=== PATIENT | female | born 1990 | race American Indian/Alaskan Native ===

== ENCOUNTER 2021-03-24 18:06 | Emergency (ER) | payer BC ==
[2021-03-24 23:40] LABS: Mean Corpuscular HGB Conc 30 % (30-34); Platelet Count 419 K/mm3 (140-440); Red Cell Distribution Width 19.2 % (13.2-15.2)
[2021-03-24 23:43] LABS: Hematocrit 31.6 % (30.3-42.9); Hemoglobin 9.4 gm/dl (10.1-14.3); Mean Corpuscular Volume 58 fl (79-97)
[2021-03-24 23:58] LABS: Alanine Aminotransferase 12 units/L (7-56); Albumin 4.5 g/dL (3.9-5); Blood Urea Nitrogen 9 mg/dL (7-17); Calcium 9.1 mg/dL (8.4-10.2); Hemolysis Index 0
[2021-03-25] MEDS ORDERED: METOCLOPRAMIDE 10 MG/2 ML INJ IV STA (00:15)
[2021-03-25] MEDS ORDERED: SODIUM CHLORIDE 0.9% 1000 ML 1,000 ML IV ONE (00:15)
[2021-03-25] MEDS ORDERED: diphenhydrAMINE 50 MG/ML VIAL IV STA (00:15)
[2021-03-25 00:19] LABS: BUN/Creatinine Ratio 15
--- NOTE | 2021-03-25 00:34 | Emergency Department Report ---
ED Abdominal Pain HPI - General Chief Complaint: Nausea/Vomiting/Diarrhea Stated Complaint: VOMITING/WEAKNESS PUI?: No Time Seen by Provider: 03/24/21 23:50 Source: patient Mode of arrival: Ambulatory Limitations: No Limitations - History of Present Illness Initial Comments: 30-year-old -[place] female is emerged complaining of a 7-day history of nausea nausea vomiting vague abdominal pain off and on unresponsive to Zofran she received earlier today when she got into an urgent care. She has been tolerating sips of Pedialyte and and franky fausto better and able to eat more than the with crackers since the onset without having vomiting episodes. Reports no chest pain or palpitations no fevers, chills, sweats. MD Complaint: abdominal pain -: Gradual Location: diffuse Radiation: none, LUQ, RUQ, epigastric Migration to: no migration Severity: mild, moderate (Although pain is improved at current) Quality: sharp Consistency: constant Improves With: nothing Worsens With: eating Associated Symptoms: nausea, vomiting. denies: dysuria, hematemesis, hematuria, anorexia, syncope - Related Data Previous Rx's Medication Instructions Recorded Last Taken Type Ibuprofen [Motrin] 800 mg PO Q8HR PRN #20 tablet 02/19/19 Unknown Rx Ofloxacin 0.3% [Floxin] 1 drop OT Q12H #5 ml 02/19/19 Unknown Rx Hyoscyamine Subl [Levsin Sl 0.125 0.125 mg SL Q4HR PRN #20 tablet 03/25/21 Unknown Rx TAB] Ondansetron [Zofran ODT TAB] 8 mg PO Q12HR #10 tab.rapdis 03/25/21 Unknown Rx Allergies Allergy/AdvReac Type Severity Reaction Status Date / Time No Known Allergies Allergy Unverified 02/19/19 02:51 ED Review of Systems ROS: Stated complaint: VOMITING/WEAKNESS Other details as noted in HPI Comment: All other systems reviewed and negative ED Past Medical Hx - Past Medical History Previous Medical History?: No - Surgical History Past Surgical History?: No - Social History Smoking Status: Unknown if ever smoked Substance Use Type: None, Marijuana - Medications Home Medications: Home Medications Medication Instructions Recorded Confirmed Last Taken Type Ibuprofen [Motrin] 800 mg PO Q8HR PRN #20 tablet 02/19/19 Unknown Rx Ofloxacin 0.3% [Floxin] 1 drop OT Q12H #5 ml 02/19/19 Unknown Rx Hyoscyamine Subl [Levsin Sl 0.125 0.125 mg SL Q4HR PRN #20 tablet 03/25/21 Unknown Rx TAB] Ondansetron [Zofran ODT TAB] 8 mg PO Q12HR #10 tab.rapdis 03/25/21 Unknown Rx ED Physical Exam - General Limitations: No Limitations General appearance: alert, in no apparent distress - Head Head exam: Present: atraumatic, normocephalic - Eye Eye exam: Present: normal appearance, PERRL, EOMI. Absent: conjunctival injection Pupils: Present: normal accommodation - ENT ENT exam: Present: normal exam, normal orophraynx, mucous membranes moist, TM's normal bilaterally - Neck Neck exam: Present: normal inspection, full ROM. Absent: thyromegaly - Respiratory Respiratory exam: Present: normal lung sounds bilaterally. Absent: respiratory distress, wheezes, rales, rhonchi, chest wall tenderness - Cardiovascular Cardiovascular Exam: Present: regular rate, normal rhythm. Absent: systolic murmur, diastolic murmur, rubs, gallop - GI/Abdominal GI/Abdominal exam: Present: soft, tenderness (Minimal tenderness to the right upper quadrant with palpation no Rodriguez sign noted), normal bowel sounds. Absent: distended, guarding, rebound, hyperactive bowel sounds, hypoactive bowel sounds, organomegaly, mass, bruit - Extremities Exam Extremities exam: Present: normal inspection - Back Exam Back exam: Present: normal inspection - Neurological Exam Neurological exam: Present: alert, oriented X3 - Psychiatric Psychiatric exam: Present: normal affect, normal mood - Skin Skin exam: Present: warm, dry, intact, normal color. Absent: rash ED Course Vital Signs 03/24/21 03/25/21 20:03 00:04 Temperature 98.5 F Pulse Rate 111 H 92 H Respiratory 18 17 Rate Blood Pressure 151/108 O2 Sat by Pulse 100 99 Oximetry ED Medical Decision Making - Lab Data Result diagrams: 03/24/21 23:21 03/24/21 23:21 - Radiology Data Radiology results: report [facility] [address] [place] [address] Ultrasound Report Signed Patient: KATHI RALPH MR#: [id number] : 1990 Acct:[id number] Age/Sex: 30 / F ADM Date: 03/24/21 Loc: ED Attending Dr: Ordering Physician: SHYAM MORGAN Date of Service: 03/25/21 Procedure(s): US abdomen limited Accession Number(s): [id number] cc: SHYAM MORGAN ULTRASOUND ABDOMEN, LIMITED (RIGHT UPPER QUADRANT) INDICATION: ruq pain. COMPARISON: None available. FINDINGS: Pancreas: Poorly visualized due to patient's body habitus. Liver: Liver is mildly enlarged measuring 16 cm. The liver parenchyma is slightly echogenic suggesting hepatic steatosis. Gallbladder: Multiple small gallstones are present within the gallbladder lumen. Gallbladder wall thickness is normal. Bile ducts: Normal. Common Bile Duct measures 4 mm. Free fluid: None. Additional Findings: The right kidney appeared unremarkable. IMPRESSION: 1. Cholelithiasis without evidence for acute cholecystitis. 2. Mild hepatomegaly with hepatic steatosis. 3. Pancreas poorly visualized. Signer Name: Susan Hernandez MD Signed: 03/25/2021 2:10 AM Workstation Name: [id number] Transcribed By: Dictated By: Susan Hernandez MD Electronically Authenticated By: Susan Hernandez MD Signed Date/Time: 03/25/21209 DD/ 7 TD/TT: Print - Medical Decision Making This patient presents with abdominal pain of unclear etiology. Their evaluation has not identified a emergent etiology for the abdominal pain. Specifically, given the very benign exam, normal laboratory studies, and lack of significant risk factors, I have a very low suspicion for appendicitis, ischemic bowel, bowel perforation, or any other life threatening disease. I have discussed with the patient the level of uncertainty with undifferentiated abdominal pain and clearly explained the need to follow-up as noted on the discharge instructions, or return to the Emergency Department immediately if the pain worsens, develops fever, persistent and uncontrollable vomiting, or for any new symptoms or concerns. I discussed with the patient that this presentation today for abdominal pain could represent a significant risk for an acute abdominal process. Although the tests in the ED were essentially normal, there is still a possibility of a process such as appendicitis, diverticulitis, cholecystitis, ulcer, early bowel obstruction, mesenteric ischemia, kidney stone, or even kidney infection which could subsequently cause disability or . The patient understands that they must return within 24 hours for a recheck or see their physician within 24 hours for re-exam due to the possibility of significant surgical or medical process. Critical care attestation.: If time is entered above; I have spent that time in minutes in the direct care of this critically ill patient, excluding procedure time. ED Disposition Clinical Impression: Cholelithiasis Disposition: TO HOME OR SELFCARE Is pt being admited?: No Does the pt Need Aspirin: No Condition: Stable Instructions: Cholelithiasis, Abdominal Pain, Adult, Gallbladder Eating Plan Referrals: [facility] [Provider Group] - 3-5 Days [facility] [Primary Care Provider] - 3-5 Days [facility] [Provider Group] - 3-5 Days
[2021-03-25 00:58] LABS: Bilirubin,Urine NEG (Negative); Blood,Urine NEG (Negative); Color,Urine Amber (Yellow); Mucus,Urine 3+ /HPF
[2021-03-25 01:21] LABS: Total Cells Counted 100
[2021-03-25 01:22] LABS: Anisocytosis 1+; Hypochromasia 3+; Large Platelets Few; Platelet Estimate Consistent w Auto
--- NOTE | 2021-03-25 02:15 | Ultrasound Report ---
ULTRASOUND ABDOMEN, LIMITED (RIGHT UPPER QUADRANT) INDICATION: ruq pain. COMPARISON: None available. FINDINGS: Pancreas: Poorly visualized due to patient's body habitus. Liver: Liver is mildly enlarged measuring 16 cm. The liver parenchyma is slightly echogenic suggestin g hepatic steatosis. Gallbladder: Multiple small gallstones are present within the gallbladder lumen. Gallbladder wall thi ckness is normal. Bile ducts: Normal. Common Bile Duct measures 4 mm. Free fluid: None. Additional Findings: The right kidney appeared unremarkable. IMPRESSION: 1. Cholelithiasis without evidence for acute cholecystitis. 2. Mild hepatomegaly with hepatic steatosis. 3. Pancreas poorly visualized. Signer Name: Susan Hernandez MD Signed: 03/25/2021 2:10 AM Workstation Name: [id number]
[2021-03-25 04:30] VITALS: BP 128/79
== END 2021-03-25 02:55 | disposition home or self-care (01) ==
LOC: ED 18:06
DX: K80.20 Calculus of gallbladder without cholecystitis without obstruction (principal); Z79.1 Long term (current) use of non-steroidal anti-inflammatories (NSAID); Z79.899 Other long term (current) drug therapy
CPT/HCPCS: 36415; 76705; 80053; 81001; 83690; 84702; 84703; 85007; 85025; 96361; 96374; 96375; 99284; J1200; J2765; J7030